=== PATIENT | female | born 1990 | race Caucasian/White ===

== ENCOUNTER 2024-07-18 18:47 | Emergency (ER) | payer OTHER, SELFPAY ==
[2024-07-18 18:51] VITALS: BP 143/77
[2024-07-18] MEDS: DECADRON 10 MG PO (19:53)
[2024-07-18 20:11] VITALS: BP 130/76
--- NOTE | 2024-07-18 20:20 | ED.SKININJ ---
HPI-Injury
General
Chief Complaint: Skin Problem
Source: patient
Exam Limitations: none
Time Seen by Provider: 07/18/24 19:39
Nursing documentation reviewed up to this point in time: agreed with
History of Present Illness-Injury
Is this injury a work related problem?: No
Is pt an associate of [facility]?: No
Initial Injury comments:
Patient to ED with complaint of generalilzed hives. States she was placed on Wellbutrin and developed hives. SHe stopped medication. Seen at and given 3 day taper of prednisone. She states it has not helped. Brought self to for eval.
Denies fever/chils, any difficulty breathing or swallowing. No prior history of same. Unable to take benadryl due to prior allergic history. Taking claritan daily.
Past History
Past History
ED Past Medical History: Asthma, GERD, Psychiatric (bipolar) and Other (Anemia)
ED Past Surgical History: Cholecystectomy
Social History
Tobacco: Former smoker
Alcohol: None
Drug: None
Personal:
Living: with family
Employment: Employed
Family History
Family History: Other (Heart murmur and the mother and daughter, diabetes, coronary artery disease, muscular dystrophy)
Review of Systems
Review of Systems
Allergies reviewed?: Yes
All Other Systems: ROS reviewed and negative except as documented in HPI and ROS
Constitutional: Reports no symptoms
EENT: Reports other (swollen lip)
Respiratory: Reports no symptoms
Cardiac: Reports no symptoms
ABD/GI: Reports no symptoms
Musculoskeletal: Reports no symptoms
Skin: Reports other (Hives to trunk, upper and lower extremities)
Neurological: Reports no symptoms
Psychiatric: Reports no symptoms
Phy Exam
General Physical Exam
General Presentation: well appearing and no apparent distress
General age: appears stated age
General Skin: warm and dry
General Habitus: normal
General Mental: alert
General Hydration: appears well hydrated
Pulmonary Exam
Pulmonary Exam: no respiratory distress
Musculoskeletal Exam
Musculoskeletal Exam: full ROM and neuro vasc intact
Skin Exam
Skin Exam: normal color, warm/dry and other (hives to trunk, upper and lower extremities)
Psychiatric Exam
Psychiatric Exam: normal mood/affect
Course
Orders/Labs/Results
Orders:
Orders
07/18/24 19:44
Dexamethasone Pf [Decadron] 10 mg PO NOW STA
Vital Signs
Initial and Last Documented VS:
Initial Vital Signs
Temp Pulse Resp BP Pulse Ox
97.9 F 105 20 143/77 99
07/18/24 18:51 07/18/24 18:51 07/18/24 18:51 07/18/24 18:51 07/18/24 18:51
Last Documented Vital Signs
Temp Pulse Resp BP Pulse Ox
97.9 F 92 20 130/76 100
07/18/24 18:51 07/18/24 20:11 07/18/24 18:51 07/18/24 20:11 07/18/24 20:11
*Critical Care Note
Total Time (30-74mins, 75-104mins- exclusive of procedures): Not Applicable
Update Note
Update Note:
Generalilzed hives. No respiratory symptoms. No throat symptoms. Pulse ox 98% RA. WIll place on longer prednisone taper. Dose of decadron given in ED. Given instructions on s/s to return to ED and she is agreeable to plan.
ED Attending Note
-
Portions of this chart may have been created with voice recognition software.� Occasional wrong word or��sound alike� substitutions may have occurred due to the inherent limitations of voice recognition software.
Discharge Plan
Departure
Patient Disposition: Home (Routine Discharge)
Date of Disposition: 07/18/24
Time of Disposition: 19:44
Patient with high blood pressure during this ER visit?: No
Condition: Good
Covid-19: Not Applicable
Discharge Problem:
Urticaria
Instructions: Hives
Prescriptions:
New
prednisone 10 mg Tablet
See Rx Instructions .ROUTE .COMPLEX Qty: 30 0RF
Rx Instructions:
Take By Mouth:
40 mg daily x3 days, 30 mg daily x3 days,
20 mg daily x3 days, 10 mg daily x3 days.
No Action
albuterol sulfate 1 PUFF HFA aerosol inhaler
1 puff inhalation R Q4HPRN PRN (Reason: as needed)
prednisone 10 mg Tablet
See Rx Instructions .ROUTE .COMPLEX Qty: 30 0RF
Rx Instructions:
Take By Mouth:
40 mg daily x3 days, 30 mg daily x3 days,
20 mg daily x3 days, 10 mg daily x3 days.
loratadine [Claritin] 10 mg tablet
10 mg PO DAILY PRN (Reason: allergic symptoms) Qty: 20 0RF
Stand Alone Forms: Return to Work
Activity Restrictions/Additional Instructions:
Follow up with your family doctor. Return to the emergency department immediately for any difficulty breathing or swallowing.
Interventions
Interventions:
*Risk Screen - Suicide Last Done: 07/18/24 18:51
*General Assessment Last Done: 07/18/24 18:51
*Neglect/Abuse Screening Last Done: 07/18/24 18:51
*Nursing Disposition Last Done: 07/18/24 20:11
ED-Skin Assessment Last Done: 07/18/24 19:27
Discharge Date and Time
Discharge Date/Time: 07/18/24 20:13
Print Language: KYRGYZ
== END 2024-07-18 20:13 | disposition home or self-care (01) ==
LOC: EMR 18:47
PROVIDERS: EMERGENCY PHYSICIAN Emergency Medicine; FAMILY PHYSICIAN Family Medicine
DX: L50.9 Urticaria, unspecified (principal); Z87.891 Personal history of nicotine dependence
CPT/HCPCS: 99283

== ENCOUNTER 2024-07-20 02:28 | Emergency (ER) | payer OTHER, SELFPAY ==
[2024-07-20 02:31] VITALS: BP 132/79
--- NOTE | 2024-07-20 03:01 | ED.GENMED ---
History of Present Illness
General
Chief Complaint: Allergic Reaction
Source: patient
Time Seen by Provider: 07/20/24 02:55
History of Present Illness
History of Present Illness:
33-year-old female presents complaining of painful and itchy hives. Patient has been experiencing symptoms from which he believes is an allergic reaction to Wellbutrin for few days. She is to take steroids and Claritin without improvement.
Patient has not taken Benadryl because she believes she had a reaction to it many years ago. At that time the patient received the Benadryl along with nausea medicine. It was not clear exactly what she was allergic to. Patient denies shortness of
breath. She does not have airway edema. She is very uncomfortable due to her hives.
Past History
Past History
ED Past Medical History: Asthma, GERD, Psychiatric (bipolar) and Other (Anemia)
ED Past Surgical History: Cholecystectomy
Social History
Tobacco: Former smoker
Alcohol: None
Drug: None
Personal:
Living: with family
Employment: Employed
Family History
Family History: Other (Heart murmur and the mother and daughter, diabetes, coronary artery disease, muscular dystrophy)
Phy Exam
Physical Exam
Physical Exam:
General: Awake, Alert, Oriented X3. No acute distress.
Vitals: unremarkable
Head: Atraumatic
Eyes: Pupils equal, EOMI
Throat: Airway intact, no exudates
Neck: Trachea midline
Lungs: Clear and equal b/l
Heart: Regular rate, no murmurs
Abd: Soft, Nontender, No pulsatile mass
Neuro: Nonfocal
Skin: Warm, dry, urticarial rash
Extremities: pulses equal b/l, no edema
Course
Orders/Labs/Results
Orders:
Orders
07/20/24 03:00
Diphenhydramine [Benadryl] 25 mg IV NOW STA
Vital Signs
Initial and Last Documented VS:
Initial Vital Signs
Temp Pulse Resp BP Pulse Ox
98.8 F 105 17 132/79 96
07/20/24 02:31 07/20/24 02:31 07/20/24 02:31 07/20/24 02:31 07/20/24 02:31
Last Documented Vital Signs
Temp Pulse Resp BP Pulse Ox
98.8 F 84 16 125/78 99
07/20/24 02:31 07/20/24 04:04 07/20/24 04:04 07/20/24 04:04 07/20/24 04:04
MDM/Problems Addressed
Differential Diagnosis Includes:
Persistent symptoms of allergic reaction
MDM/Problems Addressed:
Patient presents with persistent and uncomfortable urticaria. She is taking prednisone, Claritin, Pepcid. Patient reports a history of an allergic reaction to Benadryl. Patient states that she had some sort of reaction after IV Benadryl. She
believes it was given ink combination with Reglan. It seems very unlikely the patient has a true allergy to IV Benadryl. She was given a test dose to 5 mg IV and after 15 minutes or so there is no reaction. She was given the remainder for a total
of 25 mg IV. She had no adverse reaction and in fact had improvement of her symptoms. Patient can continue to take oral Benadryl.
*Pulse Oximetry
Patient hypoxic: no
*Critical Care Note
Total Time (30-74mins, 75-104mins- exclusive of procedures): Not Applicable
ED Attending Note
-
Portions of this chart may have been created with voice recognition software.� Occasional wrong word or��sound alike� substitutions may have occurred due to the inherent limitations of voice recognition software.
Discharge Plan
Departure
Patient Disposition: Home (Routine Discharge)
Date of Disposition: 07/20/24
Time of Disposition: 03:56
Patient with high blood pressure during this ER visit?: No
Condition: Good
Discharge Problem:
Allergic reaction, Acute urticaria
Instructions: Hives (DC)
Prescriptions:
No Action
albuterol sulfate 1 PUFF HFA aerosol inhaler
1 puff inhalation R Q4HPRN PRN (Reason: as needed)
prednisone 10 mg Tablet
See Rx Instructions .ROUTE .COMPLEX Qty: 30 0RF
Rx Instructions:
Take By Mouth:
40 mg daily x3 days, 30 mg daily x3 days,
20 mg daily x3 days, 10 mg daily x3 days.
loratadine [Claritin] 10 mg tablet
10 mg PO DAILY PRN (Reason: allergic symptoms) Qty: 20 0RF
prednisone 10 mg Tablet
See Rx Instructions .ROUTE .COMPLEX Qty: 30 0RF
Rx Instructions:
Take By Mouth:
40 mg daily x3 days, 30 mg daily x3 days,
20 mg daily x3 days, 10 mg daily x3 days.
Referrals:
Mary Ellen Canas MD [Family Provider] -
Activity Restrictions/Additional Instructions:
You did tolerate Benadryl here and can take in every 6 hours.
Interventions
Interventions:
*Risk Screen - Suicide Last Done: 07/20/24 03:17
*General Assessment Last Done: 07/20/24 03:17
*Neglect/Abuse Screening Last Done: 07/20/24 03:17
ED- Fall Risk Assessment Last Done: 07/20/24 04:04
*Nursing Disposition Last Done: 07/20/24 04:04
ED- Cardiac Assessment Last Done: 07/20/24 03:17
ED- Pulmonary Assessment Last Done: 07/20/24 03:17
ED-Skin Assessment Last Done: 07/20/24 03:17
Discharge Date and Time
Discharge Date/Time: 07/20/24 04:07
Print Language: HUNGARIAN
[2024-07-20] MEDS: BENADRYL 25 MG IV (03:26)
[2024-07-20 04:04] VITALS: BP 125/78
== END 2024-07-20 04:07 | disposition home or self-care (01) ==
LOC: EMR 02:28
PROVIDERS: EMERGENCY PHYSICIAN Emergency Medicine; FAMILY PHYSICIAN Family Medicine
DX: T78.40XA Allergy, unspecified, initial encounter (principal); L50.0 Allergic urticaria; J45.909 Unspecified asthma, uncomplicated; K21.9 Gastro-esophageal reflux disease without esophagitis; F31.9 Bipolar disorder, unspecified; Z87.891 Personal history of nicotine dependence; Z90.49 Acquired absence of other specified parts of digestive tract; Z88.5 Allergy status to narcotic agent; Z88.8 Allergy status to other drugs, medicaments and biological substances
CPT/HCPCS: 99284; 96374

== ENCOUNTER 2024-12-07 17:36 | Emergency (ER) | payer OTHER, SELFPAY ==
[2024-12-07 17:38] VITALS: BP 120/84
--- NOTE | 2024-12-07 18:58 | ED.MUSCINJ ---
HPI-Injury
General
Chief Complaint: Fall
Source: patient
Exam Limitations: none
Time Seen by Provider: 12/07/24 18:47
History of Present Illness-Injury
Initial Injury comments:
34-year-old female works for the [employer] presents after injury at work today. Slipped on ice and fell backwards on her buttock and lower back. Did not the wind out of her. She complains of lower back and tailbone pain. No associated leg
pain. She had to leave her shift early today because of this injury. She did not hit her head. She is healthy otherwise. She does not take any medication for this at this point. Sent in by her employer. No other complaints at this time
Past History
Past History
ED Past Medical History: Asthma, GERD, Psychiatric (bipolar) and Other (Anemia)
ED Past Surgical History: Cholecystectomy
Social History
Tobacco: Former smoker
Alcohol: None
Drug: None
Personal:
Living: with family
Employment: Employed
Family History
Family History: Other (Heart murmur and the mother and daughter, diabetes, coronary artery disease, muscular dystrophy)
Phy Exam
Physical Exam
Physical Exam:
General: Well-appearing female no acute respiratory distress
HEENT: Normocephalic atraumatic
Musculoskeletal exam: Patient is tender to the upper lumbar spine and sacrum. No step-offs. Good range of motion bilateral lower extremities
Neurologic exam: Patient is ambulatory good strength and sensation to the lower extremities bilaterally
Extremities: No cyanosis
Injury Course
Orders/Labs/Results
Orders:
Orders
12/07/24 18:55
CR Lumbar Spine 2 Or 3 Views Urgent
Comment:
Reason For Exam: fall
CR Sacrum/coccyx Min 2 View Urgent
Comment:
Reason For Exam: fall, low back pain
12/07/24 18:56
Acetaminophen [Tylenol] 650 mg PO NOW STA
MDM/Problems Addressed
Differential Diagnosis Includes:
Slip and fall with low back pain. Consider strain versus contusion versus fracture.
X-rays of the lumbar spine and sacrum pending. Tylenol ordered for pain
*Critical Care Note
Total Time (30-74mins, 75-104mins- exclusive of procedures): Not Applicable
Update Note
Update Note:
X-rays reviewed and are negative for acute fractures. Recommended ibuprofen or Tylenol for pain. Stable for discharge with follow
ED Attending Note
-
Portions of this chart may have been created with voice recognition software.� Occasional wrong word or��sound alike� substitutions may have occurred due to the inherent limitations of voice recognition software.
Discharge Plan
Departure
Patient Disposition: Home (Routine Discharge)
Date of Disposition: 12/07/24
Time of Disposition: 21:46
Patient with high blood pressure during this ER visit?: No
Discharge Problem:
Lumbar strain
Instructions: Low back pain in adults
Prescriptions:
No Action
albuterol sulfate 1 PUFF HFA aerosol inhaler
1 puff inhalation R Q4HPRN PRN (Reason: as needed)
prednisone 10 mg Tablet
See Rx Instructions .ROUTE .COMPLEX Qty: 30 0RF
Rx Instructions:
Take By Mouth:
40 mg daily x3 days, 30 mg daily x3 days,
20 mg daily x3 days, 10 mg daily x3 days.
loratadine [Claritin] 10 mg tablet
10 mg PO DAILY PRN (Reason: allergic symptoms) Qty: 20 0RF
prednisone 10 mg Tablet
See Rx Instructions .ROUTE .COMPLEX Qty: 30 0RF
Rx Instructions:
Take By Mouth:
40 mg daily x3 days, 30 mg daily x3 days,
20 mg daily x3 days, 10 mg daily x3 days.
Referrals:
Mary Ellen Canas MD [Family Provider] -
Activity Restrictions/Additional Instructions:
Rest. Use warm compresses. Use Tylenol for pain peer return if worse otherwise follow-up with your doctor
Interventions
Interventions:
*Risk Screen - Suicide Last Done: 12/07/24 17:38
*General Assessment Last Done: 12/07/24 17:38
*Neglect/Abuse Screening Last Done: 12/07/24 17:38
Discharge Date and Time
Print Language: KOREAN
[2024-12-07] MEDS: TYLENOL 650 MG PO (19:20)
== END 2024-12-07 22:33 | disposition home or self-care (01) ==
LOC: EMR 17:36
PROVIDERS: EMERGENCY PHYSICIAN Emergency Medicine; FAMILY PHYSICIAN Family Medicine
DX: S39.012A Strain of muscle, fascia and tendon of lower back, initial encounter (principal); W00.0XXA Fall on same level due to ice and snow, initial encounter; Y99.0 Civilian activity done for income or pay; J45.909 Unspecified asthma, uncomplicated; K21.9 Gastro-esophageal reflux disease without esophagitis; F31.9 Bipolar disorder, unspecified; D64.9 Anemia, unspecified; Z87.891 Personal history of nicotine dependence; Z90.49 Acquired absence of other specified parts of digestive tract
CPT/HCPCS: 99283; 72100; 72220

== ENCOUNTER 2025-11-09 16:57 | Emergency (ER) | payer SELFPAY ==
[2025-11-09 16:57] VITALS: BMI 33.7
[2025-11-09 17:35] LABS: Hematocrit 36.4 % (37.0-47.0); Hemoglobin 12.6 g/dL (12.0-16.0); Mean Corp Hgb Conc. 34.6 g/dL (33.0-37.0); Mean Corpuscular Volume 89.2 fL (81.0-99.0); Nucleated Red Blood Cells % 0 %; Platelet Count 228 10^3/uL (130-400); Red Cell Dist. Width 11.5 % (11.5-14.5)
[2025-11-09 17:54] LABS: COVID-19 Antigen Negative (Negative)
[2025-11-09 17:56] LABS: HCG, Serum Qualitative Screen Negative
[2025-11-09 18:00] LABS: ALT (SGPT) 182 U/L (0-35); AST (SGOT) 158 U/L (14-36); Albumin 4.5 g/dl (3.5-5.0); Alkaline Phosphatase 79 U/L (38-126); Blood Urea Nitrogen 14 mg/dl (7-17); Calcium 9.9 mg/dl (8.4-10.2); Carbon Dioxide 28 mmol/L (22-30); Chloride 104 mmol/L (98-107); Glucose 104 mg/dl (70-99); Potassium 4.8 mmol/L (3.5-5.1); Sodium 136 mmol/L (135-145); Total Protein 7.0 g/dl (6.3-8.2); eGFR > 60.00
--- NOTE | 2025-11-09 18:25 | ED.GENMED ---
History of Present Illness
General
Chief Complaint: Cold/Flu/URI Symptoms
Source: patient
Exam Limitations: none
Time Seen by Provider: 11/09/25 18:23
Nursing documentation reviewed up to this point in time: agreed with
History of Present Illness
History of Present Illness:
Patient to the emergency department with complaint of fever, chills, diarrhea. Symptoms started this a.m. She denies any sick contacts. She brought self to the emergency department for evaluation.
Past History
Past History
ED Past Medical History: Asthma, GERD, Psychiatric (bipolar) and Other (Anemia)
ED Past Surgical History: Cholecystectomy
Social History
Tobacco: Former smoker
Alcohol: None
Drug: None
Personal:
Living: with family
Employment: Employed
Family History
Family History: Other (Heart murmur and the mother and daughter, diabetes, coronary artery disease, muscular dystrophy)
Review of Systems
Review of Systems
Allergies reviewed?: Yes
All Other Systems: ROS reviewed and negative except as documented in HPI and ROS
Constitutional: Reports fever and fatigue
EENT: Reports no symptoms
Respiratory: Reports no symptoms
Cardiac: Reports no symptoms
ABD/GI: Reports abdominal pain (Upper abdominal pain) and diarrhea
: Reports no symptoms
Musculoskeletal: Reports no symptoms
Skin: Reports no symptoms
Neurological: Reports weakness
Psychiatric: Reports no symptoms
Phy Exam
General Physical Exam
General Presentation: well appearing and mild distress
General age: appears stated age
General Skin: warm and dry
General Habitus: normal
General Mental: alert
Cardiovascular Exam
Cardiovascular Exam: regular rate/rhythm
Pulmonary Exam
Pulmonary Exam: lungs clear and no respiratory distress
Gastrointestinal Exam
Gastrointestinal Exam: normal bowel sounds, soft, no organomegaly, no pulsatile mass and non distended
Palpation: left upper quadrant: Mild tenderness, left lower quadrant: No tenderness, right upper quadrant: Mild tenderness and right lower quadrant: No tenderness
Musculoskeletal Exam
Musculoskeletal Exam: full ROM
Skin Exam
Skin Exam: normal color, warm/dry and no rash
Psychiatric Exam
Psychiatric Exam: normal mood/affect
Sepsis
Sepsis Screening
Sepsis Assessment: Sepsis Ruled Out
Sepsis Screen
Sepsis Screen: Sepsis Ruled Out
Date: 11/10/25
Time: 19:26
Course
Orders/Labs/Results
Orders:
Orders
11/09/25 17:07
Test Result ONCE
11/09/25 17:21
CMP [Comprehensive Metabolic Panel] Urgent
COVID-19 Antigen Urgent
Source: Nasal Swab
Complete Blood Count/With Diff Urgent
HCG, Serum Qualitative Screen Urgent
Lipase Urgent
Comment: ADD ON
Influenza A+B Rapid Molecular Urgent
[facility] Source: Nasal Swab
Specimen Description:
11/09/25 18:33
US Abdomen Complete/Upper Urgent
Comment:
Reason For Exam: upper abd. pain, elevated LFT's
11/09/25 18:34
0.9% Sodium Chloride 1000 ml [Nss] 1,000 ml IV BOLUS
11/09/25 18:59
Ketorolac [Toradol] 30 mg IV NOW STA
11/09/25 20:01
C difficile Antigen & Toxins Urgent
[facility] Source: Feces/Stool
Specimen Description:
Date Specimen was Collected: 11/09/25
Time Specimen was Collected: 20:00
Norovirus by PCR Urgent
[facility] Source: Feces/Stool
Specimen Description:
Date Specimen was Collected: 11/09/25
Time Specimen was Collected: 20:00
Stool Culture Urgent
[facility] Source: Feces/Stool
Specimen Description:
Date Specimen was Collected: 11/09/25
Time Specimen was Collected: 20:00
11/09/25 21:17
Add On- LAB Urgent
Tests Added?: lipase
Abnormal Lab Results
11/09/25
17:21
RBC 4.08 L 10^6/uL
(4.20-5.40)
Hct 36.4 L %
(37.0-47.0)
Absolute Lymphs (auto) 0.8 L 10^3/uL
(1.2-3.4)
Neutrophils % 75.5 H %
(42.2-75.2)
Lymphocytes % 13.8 L %
(20.5-51.1)
Monocytes % 9.8 H %
(1.7-9.3)
Glucose 104 H mg/dl
(70-99)
AST 158 H U/L
(14-36)
ALT 182 H U/L
(0-35)
11/09/25 17:21
11/09/25 17:21
Vital Signs
Initial and Last Documented VS:
Initial Vital Signs
Temp Pulse Resp Pulse Ox
101.6 F H 137 20 100
11/09/25 17:00 11/09/25 17:00 11/09/25 17:00 11/09/25 17:00
Last Documented Vital Signs
Temp Pulse Resp BP Pulse Ox
99.9 F 98 17 123/98 100
11/09/25 21:31 11/10/25 00:05 11/10/25 00:05 11/09/25 21:31 11/10/25 00:46
*Radiology
Radiology exam reviewed: radiology read reviewed
*Pulse Oximetry
SaO2: 100
Oxygen Mode of Delivery: Room air
Patient hypoxic: no
*Critical Care Note
Total Time (30-74mins, 75-104mins- exclusive of procedures): Not Applicable
Update Note
Update Note:
No fever/chills, diarrhea. Symptoms started this a.m. Mild upper abdominal pain noted on physical examination. Labs reviewed. WBC 5.5, AST 158, ALT 182. She denies Tylenol use. This is a new LFT elevation for her. She was sent for upper
abdominal ultrasound. Results negative for acute findings. Temp 101.6 on arrival to ED she was given IV fluids and NSAID. Temp down to 99.9. Patient improved with IV fluids and rest. Will discharge home, close follow-up with PCP. She was given
instructions on signs and symptoms to return to the emergency department and she is agreeable to this plan.
ED Attending Note
-
Portions of this chart may have been created with voice recognition software.� Occasional wrong word or��sound alike� substitutions may have occurred due to the inherent limitations of voice recognition software.
Discharge Plan
Departure
Patient Disposition: Home (Routine Discharge)
Date of Disposition: 11/09/25
Time of Disposition: 22:09
Patient with high blood pressure during this ER visit?: No
Condition: Good
Covid-19: Not Applicable
Discharge Problem:
Fever in adult, Diarrhea
Instructions: Fever, Adult (DC), Clear liquid diet, Acute Diarrhea
Prescriptions:
No Action
albuterol sulfate 1 PUFF HFA aerosol inhaler
1 puff inhalation R Q4HPRN PRN (Reason: as needed)
prednisone 10 mg Tablet
See Rx Instructions .ROUTE .COMPLEX Qty: 30 0RF
Rx Instructions:
Take By Mouth:
40 mg daily x3 days, 30 mg daily x3 days,
20 mg daily x3 days, 10 mg daily x3 days.
loratadine [Claritin] 10 mg tablet
10 mg PO DAILY PRN (Reason: allergic symptoms) Qty: 20 0RF
prednisone 10 mg Tablet
See Rx Instructions .ROUTE .COMPLEX Qty: 30 0RF
Rx Instructions:
Take By Mouth:
40 mg daily x3 days, 30 mg daily x3 days,
20 mg daily x3 days, 10 mg daily x3 days.
Referrals:
Mary Ellen Canas MD [Family Provider, Family Practice] - Follow up in 2-3 days
Stand Alone Forms: Return to Work
Activity Restrictions/Additional Instructions:
Return to the emergency department for any changes in/worsening of your symptoms. Your stool cultures will result tomorrow. You will be notified for any positive results.
Interventions
Interventions:
*General Assessment Last Done: 11/09/25 18:42
*Neglect/Abuse Screening Last Done: 11/09/25 18:42
*ED COVID-19 Vaccine History Last Done: 11/09/25 17:00
*ED Influenza Vaccine History Last Done: 11/09/25 17:00
[facility] Fall Risk Assessment Tool Last Done: 11/09/25 16:57
*Risk Screen - Suicide (C-SSRS) Last Done: 11/09/25 17:00
*Nursing Disposition Last Done: 11/10/25 00:05
ED- Pulmonary Assessment Last Done: 11/09/25 18:42
Discharge Date and Time
Discharge Date/Time: 11/10/25 00:05
Print Language: SERBIAN
[2025-11-09] MEDS: NSS 1000 IV (18:46)
[2025-11-09 18:51] VITALS: BP 133/76
[2025-11-09] MEDS: TORADOL 30 MG IV (19:51)
[2025-11-09 21:31] VITALS: BP 123/98
[2025-11-09 21:47] LABS: Lipase 65 U/L (23-300)
== END 2025-11-10 00:05 | disposition home or self-care (01) ==
LOC: EMR 16:57
PROVIDERS: Emergency Medicine; EMERGENCY PHYSICIAN Emergency Medicine; FAMILY PHYSICIAN Family Medicine
DX: R19.7 Diarrhea, unspecified (principal); R50.9 Fever, unspecified; R10.10 Upper abdominal pain, unspecified; Z11.52 Encounter for screening for COVID-19; F31.9 Bipolar disorder, unspecified; K21.9 Gastro-esophageal reflux disease without esophagitis; F41.9 Anxiety disorder, unspecified; J45.909 Unspecified asthma, uncomplicated; Z87.891 Personal history of nicotine dependence; Z90.49 Acquired absence of other specified parts of digestive tract; Z88.5 Allergy status to narcotic agent; Z88.8 Allergy status to other drugs, medicaments and biological substances
CPT/HCPCS: 99284; 96374; 96361; 76700; 80053; 83690; 84703; 85025; 87045; 87046; 87324; 87427; 87449; 87502; 87798; 87811